=== PATIENT | male | born 1960 | race Caucasian/White ===

== ENCOUNTER → 2021-01-25 | Day surgery (SDC) | payer MEDICARE, OTHER ==
[2021-01-24 13:34] LABS: BASOPHILS % 0.5 % (0.0-1.0); EOSINOPHILS # (AUTO) 0.1 (0.0-0.4); EOSINOPHILS % 0.8 % (0.0-6.0); HEMATOCRIT 41.5 % (38.2-49.6); HEMOGLOBIN 13.9 g/dL (14.0-18.0); LYMPHOCYTES # (AUTO) 1.6 (1.0-3.2); LYMPHOCYTES % 21.3 % (18.0-39.1); MEAN CORPUSCULAR HEMOGLOBIN 32.8 pg (28-32); MEAN CORPUSCULAR HGB CONC 33.5 g/dL (31-35); MEAN CORPUSCULAR VOLUME 97.9 fL (81-99); MONOCYTES # (AUTO) 0.7 (0.2-0.8); MONOCYTES % 9.9 % (4.4-11.3); NEUTROPHILS # (AUTO) 4.9 (2.1-6.9); NEUTROPHILS % 67.1 % (38.7-80.0); PLATELET COUNT 287 x10e3/uL (140-360); RED BLOOD COUNT 4.24 x10e6/uL (4.3-5.7); RED CELL DISTRIBUTION WIDTH 13.3 % (11.7-14.4)
[~2021-01-25] MED LIST: CIALIS5 MG PO; CYMBALTA30 MG PO; DILTIAZEM 24HR180 M1 PO; FLECAINIDE ACE100 MG PO; FLUOXETINE HCL20 M1 PO; LOSARTAN POTASS25 MG PO; METOPROLOL SUCC25 MG PO; MOXIFLOXACIN HCL(OPTH) 3 ML BTL ONE; OR PHACO EYE KIT ONE; PREOP PHACO EYE KIT ONE; TEMAZEPAM15 MG PO; XARELTO20 MG PO
[2021-01-25 13:00] VITALS: BP 122/66
== END | disposition home or self-care (01) ==
LOC: OR 10:53
PROVIDERS: ATTEND Ophthalmology
DX: H25.11 Age-related nuclear cataract, right eye (principal); I10 Essential (primary) hypertension; I42.9 Cardiomyopathy, unspecified; I48.91 Unspecified atrial fibrillation; G89.29 Other chronic pain; Z88.8 Allergy status to other drugs, medicaments and biological substances; Z01.810 Encounter for preprocedural cardiovascular examination; Z01.812 Encounter for preprocedural laboratory examination; Z20.822 Contact with and (suspected) exposure to COVID-19; Z79.02 Long term (current) use of antithrombotics/antiplatelets
CPT/HCPCS: 36415; 66984; 85025; 93005; U0002; V2632

== ENCOUNTER → 2021-03-01 | Day surgery (SDC) | payer MEDICARE, OTHER ==
[~2021-03-01] MED LIST changes: -MOXIFLOXACIN HCL(OPTH) 3 ML BTL ONE
[2021-03-01 11:47] VITALS: BP 122/76
== END | disposition home or self-care (01) ==
LOC: OR 09:28
PROVIDERS: ATTEND Ophthalmology
DX: H25.12 Age-related nuclear cataract, left eye (principal); I10 Essential (primary) hypertension; G47.00 Insomnia, unspecified; F41.9 Anxiety disorder, unspecified; Z88.8 Allergy status to other drugs, medicaments and biological substances; Z01.812 Encounter for preprocedural laboratory examination; Z20.822 Contact with and (suspected) exposure to COVID-19; Z79.02 Long term (current) use of antithrombotics/antiplatelets; Z87.891 Personal history of nicotine dependence
CPT/HCPCS: 66984; U0002; V2632